=== PATIENT | female | born 1950 | race Caucasian/White ===

== ENCOUNTER 2018-07-19 08:45 | Observation (INO) | payer OTHER ==
--- NOTE | 2018-07-19 08:47 | EDPHY ---
H & P Time Seen by Provider: 07/19/18 08:47 HPI/ROS: CHIEF COMPLAINT: Chest pressure, neck discomfort HISTORY OF PRESENT ILLNESS: The patient presents to the ED with complaints of chest pressure neck discomfort that began earlier today. The patient has no history of coronary artery disease. The patient went to her primary care provider's office and was transferred to the ER for evaluation of her symptoms. The patient does report the pain is pleuritic and positional. She has no history of exertional chest pain or shortness of breath. Past medical history is significant for hyperlipidemia. The patient is a remote smoker. The patient denies any asymmetric calf pain or swelling. The patient was brought in by paramedics and received fentanyl prior to arrival. The patient arrives with a blood pressure of 200/112. REVIEW OF SYSTEMS: A comprehensive 10 point review of systems is otherwise negative aside from elements mentioned in the history of present illness. Source: Patient Exam Limitations: No limitations - Family History Significant Family History: No pertinent family hx - Social History Smoking Status: Former smoker - Physical Exam Exam: General Appearance: Alert, no distress Eyes: Pupils equal and round no pallor or injection ENT, Mouth: Mucous membranes moist Respiratory: There are no retractions, lungs are clear to auscultation Cardiovascular: Regular rate and rhythm Gastrointestinal: Abdomen is soft and nontender, no masses, bowel sounds normal Neurological: 5/5 strength all 4 extremities Skin: Warm and dry, no rashes Musculoskeletal: Neck is supple nontender Extremities: symmetrical, full range of motion, no clinical evidence of DVT Constitutional: Initial Vital Signs Temperature (C) 37.7 C 07/19/18 09:00 Heart Rate 83 07/19/18 09:00 Respiratory Rate 16 07/19/18 09:00 Blood Pressure 200/112 H 07/19/18 09:00 O2 Sat (%) 93 07/19/18 09:00 O2 Delivery Mode Room Air Allergies/Adverse Reactions: celecoxib Allergy (Verified 07/19/18 09:02) codeine Allergy (Verified 07/19/18 09:01) Penicillins Allergy (Verified 07/19/18 09:02) Sulfa (Sulfonamide Antibiotics) Allergy (Verified 07/19/18 09:02) Home Medications: Medication Instructions Recorded SIMVASTATIN 07/19/18 Medical Decision Making - Diagnostics Imaging Results: Imaging Impressions Chest X-Ray 07/19/18 08:55 Impression: Bibasilar atelectasis and moderate airways disease/bronchitis. CT chest angiogram: No dissection, no pulmonary embolism, 2 small pulmonary nodules noted. Radiologist recommend short-term follow-up in 2-3 months. ED Course/Re-evaluation: Patient presents to the ED with complaints of chest and neck pain that began last night. The patient arrives and is noted to have a normal EKG without ischemia. The patient's initial troponin was normal. The patient was quite hypertensive with a blood pressure of 200/120. She received sublingual nitroglycerin without improvement of her symptoms but did have improvement of her blood pressure down to 140/80. The patient does have a pleuritic component to chest pain. Her D-dimer is negative which I feel adequately excludes pulmonary embolism. A CT angiogram of the chest has been ordered to evaluate for dissection in the setting of chest pain, neck pain and significant hypertension. The patient does have a heart score of 5 based upon at age, risk factors and [address] chest angiogram demonstrates no evidence of a PE or dissection. The patient does have 2 pulmonary nodules which the radiologist recommends a short-term follow-up CT in 2-3 months. Patient will be admitted to the hospital by Dr. Broderick Gilliland for further evaluation and management of her symptoms. Differential Diagnosis: Differential diagnosis considered includes acute coronary syndrome, aortic dissection, pulmonary embolism, anxiety syndrome, pneumothorax, pneumonia - Data Points Laboratory Results: Laboratory Results 07/19/18 08:45 07/19/18 08:45 07/19/18 07/19/18 07/19/18 08:58 08:45 08:45 WBC RBC Hgb Hct MCV MCH MCHC RDW Plt Count MPV Neut % (Auto) Lymph % (Auto) Wilcox % (Auto) Eos % (Auto) Baso % (Auto) Nucleat RBC Rel Count Absolute Neuts (auto) Absolute Lymphs (auto) Absolute Monos (auto) Absolute Eos (auto) Absolute Basos (auto) Absolute Nucleated RBC Immature Gran % Immature Gran # D-Dimer < 0.27 ug/mLFEU ug/mLFEU (0.00-0.50) Sodium 138 mEq/L mEq/L (135-145) Potassium 4.8 mEq/L mEq/L (3.5-5.2) Chloride 108 mEq/L mEq/L (97-110) Carbon Dioxide 19 mEq/l L mEq/l (22-31) Anion Gap 11 mEq/L mEq/L (6-14) BUN 17 mg/dL mg/dL (7-23) Creatinine 0.6 mg/dL mg/dL (0.6-1.0) Estimated GFR > 60 Glucose 98 mg/dL mg/dL (70-100) Calcium 9.5 mg/dL mg/dL (8.5-10.4) POC Troponin I 0.00 ng/mL ng/mL (0.00-0.08) 07/19/18 08:45 WBC 10.74 10^3/uL H 10^3/uL (3.80-9.50) RBC 4.80 10^6/uL 10^6/uL (4.18-5.33) Hgb 15.5 g/dL g/dL (12.6-16.3) Hct 45.4 % % (38.0-47.0) MCV 94.6 fL fL (81.5-99.8) MCH 32.3 pg pg (27.9-34.1) MCHC 34.1 g/dL g/dL (32.4-36.7) RDW 12.8 % % (11.5-15.2) Plt Count 226 10^3/uL 10^3/uL (150-400) MPV 10.3 fL fL (8.7-11.7) Neut % (Auto) 73.5 % % (39.3-74.2) Lymph % (Auto) 15.7 % % (15.0-45.0) Wilcox % (Auto) 8.2 % % (4.5-13.0) Eos % (Auto) 1.9 % % (0.6-7.6) Baso % (Auto) 0.3 % % (0.3-1.7) Nucleat RBC Rel Count 0.0 % % (0.0-0.2) Absolute Neuts (auto) 7.90 10^3/uL H 10^3/uL (1.70-6.50) Absolute Lymphs (auto) 1.69 10^3/uL 10^3/uL (1.00-3.00) Absolute Monos (auto) 0.88 10^3/uL H 10^3/uL (0.30-0.80) Absolute Eos (auto) 0.20 10^3/uL 10^3/uL (0.03-0.40) Absolute Basos (auto) 0.03 10^3/uL 10^3/uL (0.02-0.10) Absolute Nucleated RBC 0.00 10^3/uL 10^3/uL (0-0.01) Immature Gran % 0.4 % % (0.0-1.1) Immature Gran # 0.04 10^3/uL 10^3/uL (0.00-0.10) D-Dimer Sodium Potassium Chloride Carbon Dioxide Anion Gap BUN Creatinine Estimated GFR Glucose Calcium POC Troponin I Medications Given: Discontinued Medications Aspirin (Aspirin) 324 mg PO EDNOW ONE Stop: 07/19/18 08:55 Last Admin: 07/19/18 09:25 Dose: 324 mg Lorazepam (Ativan Injection) 1 mg IVP EDNOW ONE Stop: 07/19/18 09:48 Last Admin: 07/19/18 09:52 Dose: 1 mg Nitroglycerin (Nitrostat) 0.4 mg SL Q5M PRN PRN Reason: Chest Pain Last Admin: 07/19/18 09:44 Dose: 0.4 mg Point of Care Test Results: Chemistry 07/19/18 08:58 POC Troponin I 0.00 ng/mL ng/mL (0.00-0.08) Departure - Dep[facility]ure [facility] Clinical Impression: Chest pain, Pulmonary nodules Condition: Good Referrals: Brooklyn Warren MD [Primary Care Provider] - As per Instructions
[2018-07-19] MEDS ORDERED: ASPIRIN 81 MG CHEWABLE TAB PO ONE (08:54)
[2018-07-19 09:04] LABS: PLATELET COUNT 226 10^3/uL (150-400)
[2018-07-19] MEDS: NITROGLYCERIN 0.4 MG BTL SL PRN ×3 (09:24→09:44)
[2018-07-19] MEDS ORDERED: LORazepam 2 MG/ML INJ IVP ONE (09:47)
[2018-07-19] MEDS ORDERED: IOPAMIDOL (ISOVUE 370) 100 ML BTL IV ONE (09:55)
[2018-07-19] MEDS ORDERED: ONDANSETRON 4 MG/2 ML VIAL IVP PRN (12:54)
[2018-07-19] MEDS ORDERED: ONDANSETRON DISINTEGRATING 4 MG TAB PO PRN (12:54)
[2018-07-19] MEDS ORDERED: ACETAMINOPHEN 325 MG TAB PO PRN (12:54)
[2018-07-19] MEDS ORDERED: IBUPROFEN 200 MG TAB PO PRN (13:02)
[2018-07-19] MEDS ORDERED: MBX SOLN 30 ML BOTTLE PO PRN (13:07)
--- NOTE | 2018-07-19 13:36 | GHP ---
[f rep st] HISTORY AND PHYSICAL DATE OF ADMISSION: 07/19/2018 HISTORY OF PRESENT ILLNESS: The patient is a pleasant 68-year-old female with history of hyperlipide danie who awoke last evening with pain in her throat that radiated down to her chest. It felt like a s ore throat, but her throat itself was not sore. She was not diaphoretic or shortness of breath. It did not radiate to her arms. It was somewhat bilateral in nature. She has a history of hyperlipidemia and was very hypertensive on presentation. In the past, she has had episodes of periodic hypertension. She does not had a history of exertional anginal symptoms. S he has had reflux in the past. This did not particularly feel like it. There is also a pleuritic na ture to it. She has not had other viral prodrome-like symptoms. She worked a double shift as a cook. She came home. She did have a couple glasses of wine prior to bed while watching [employer]. She denies history of PND, orthopnea, or lower extremity edema. She does not have a history of angin al-type symptoms. REVIEW OF SYSTEMS: Complete 10-point review of systems conducted. Negative except as noted in the H PI. PAST MEDICAL HISTORY: Hyperlipidemia. HOME MEDICATIONS: Simvastatin, ibuprofen. ALLERGIES: Celecoxib, codeine, penicillin, sulfa. SOCIAL HISTORY: She is a cook. Lives in [place]. Originally from [place]. Nonsmoker, but did smoke for 40 years. FAMILY HISTORY: Notable for a congestive heart failure in her father. PHYSICAL EXAM: PRESENTING VITALS: Temp 37.7, blood pressure 200/112, now 123/75, pulse 83, breathin g 16 times a minute, 92% on room air. GENERAL: No acute distress. HEENT: Sclerae anicteric. Orop harynx clear. Mucous membranes moist. NECK: Supple without lymphadenopathy or JVD. LUNGS: Clear to auscultation bilaterally. HEART: S1, S2. ABDOMEN: Soft, nontender, nondistended. LOWER EXTREM ITIES: No edema. Calves are nontender. SKIN: Without rash NEUROLOGIC: Nonfocal. LABORATORY DATA: White count 10, hematocrit 45, platelets are 226,000, D-dimer is normal. Sodium 13 8, potassium 4.8, chloride 108, bicarb 19, BUN 17, creatinine 0.6, glucose is 98, point of care tropo varsha was 0.00. EKG interpreted by me shows sinus rhythm at 80 with normal axis and intervals. There are no ST or T- wave changes. Chest CT shows no thromboembolic disease. No aortic dissection. She does have 2 semisolid 1 cm nodu les in the left upper lobe and right lower lobe. Chest x-ray interpreted by me, bibasilar atelectasis with airway disease. I discussed the case with Dr. Richard Thornton. ASSESSMENT AND PLAN: A 68-year-old female with chest and neck pain. 1. Chest/neck pain. It is difficult to know what to make of this. I think probably it probably act ually sounds most like reflux-type symptoms and certainly having one right before bed does put people at risk for this. That said, I think given her risk factor profile, she warrants further evaluation with a stress test. We will also cycle troponins, check a lipid panel in the morning. I will give her a trial of a GI cocktail now. 2. Hypertension. She was markedly hypertensive on presentation. It has kind of normalized. We sabrina l follow. We will not start her on any antihypertensives at this point in time. 3. Question viral syndrome. The patient has some airway disease and crackles on exam. We will foll ow. 4. Prophylaxis. SCDs, low-molecular heparin if staying longer than 24 hours. DISPOSITION: Observation status. /[id number]/MODL
[2018-07-19] MEDS ORDERED: PRAVASTATIN SODIUM 20 MG TAB PO SCH (21:00)
[2018-07-20] MEDS ORDERED: REGADENOSON 0.4 MG/5 ML SYR IVP ONE (11:05)
--- NOTE | 2018-07-20 12:33 | CPR ---
[f rep st] NONINVASIVE CARDIAC PROCEDURE REPORT DATE OF PROCEDURE: 07/20/2018 PROCEDURE: Sola nuclear stress test. INDICATION: The patient is a 68-year-old female who presented to the hospital with pleuritic chest p ain. Her chest discomfort began after she woke up in the morning. It was worse with deep breaths an d lying down. Her symptoms progressed and, therefore, she presented to the hospital. Her risk facto rs for coronary artery disease include hyperlipidemia. Her EKG is also abnormal with poor R-wave pro gression in the anterior leads, indicating a possible interior prior anterior WA. DESCRIPTION OF PROCEDURE: Consent was obtained. The patient was placed on continuous telemetry. He r resting EKG revealed normal sinus rhythm with poor R-wave progression in lead V3 and nonpathologica l Q-waves in the inferior leads. The patient attempted to walk on the treadmill, but developed chest pain at approximately 2 minutes. Her discomfort progressed and at 6 minutes the treadmill portion w as discontinued and she was switched over to Lexiscan. She was infused with Lexiscan and complained of lightheadedness and shortness of breath. She remained in normal sinus rhythm throughout the infus ion. Her blood pressure was stable with the infusion, but she did become slightly tachycardic. With in 4 minutes of the recovery, her symptoms had resolved. Her chest discomfort also improved by this time. PLAN: Her symptoms are most consistent with pericarditis, but she she does have an abnormal EKG. Dwayne lei nuclear images. /[id number]/MODL
[2018-07-20 12:56] VITALS: BP 125/67
--- NOTE | 2018-07-20 13:15 | CPEKG ---
Test Reason : OPEN Blood Pressure : / mmHG Vent. Rate : 080 BPM Atrial Rate : 080 BPM P-R Int : 151 ms QRS Dur : 082 ms QT Int : 402 ms P-R-T Axes : 051 007 048 degrees QTc Int : 464 ms Sinus rhythm Confirmed by Rosendo Cardoza ([id number]) on 07/20/2018 1:15:15 PM Referred By: Broderick Gilliland Confirmed By:Rosendo Cardoza
--- NOTE | 2018-07-20 13:39 | HOSPPROG ---
Hospitalist Progress Note Assessment/Plan: 68 yo F w atypical cp, neg stress home today see dc summary Subjective: stess neg Objective: Vital Signs Temp Pulse Resp BP Pulse Ox 37.1 C 73 18 125/67 H 92 07/20/18 12:00 07/20/18 12:00 07/20/18 12:00 07/20/18 12:00 07/20/18 12:00 07/19/18 07/20/18 07/21/18 05:59 05:59 05:59 Intake Total 950 400 Balance 950 400 - Physical Exam Constitutional: no apparent distress, appears nourished Eyes: PERRL, anicteric sclera Ears, Nose, Mouth, Throat: moist mucous membranes, hearing normal Cardiovascular: regular rate and rhythym, no murmur, rub, or gallop Respiratory: no respiratory distress, no rales or rhonchi Gastrointestinal: normoactive bowel sounds, soft, non-tender abdomen Genitourinary: No adler in urethra Skin: warm, normal color Musculoskeletal: full muscle strength ICD10 Worksheet Patient Problems: Problems Problem Status Onset Chest pain Acute Pulmonary nodules Acute
--- NOTE | 2018-07-20 14:04 | GDS ---
[f rep st] DISCHARGE SUMMARY DISCHARGE DIAGNOSES: Atypical chest pain, hyperlipidemia. Please see admission history and physical by Dr. Broderick Gilliland. HOSPITAL COURSE: The patient was having atypical chest pains around her upper chest, associated with some pleuritic component. She had a chest x-ray that was negative for pneumonia. She had a CTA, sh owing normal caliber aorta without aneurysm, dissection, no thromboembolic disease. She had 2 semi-s olid 1 cm nodules in the left upper lobe and right lower lobe; they require followup. She is given a prescription for followup CT scan in 3 months. She has been a smoker. She had an EKG that was pedro luis schemic without ST or T-wave changes, did not have HI changes either. Maybe some subtle HI depressio n at lead 2. The patient had some pain with exercising, but had no wall motion abnormalities. No ev idence of prior infarct or ischemia. Normal left ventricular ejection fraction. There is a possible diagnosis of pericarditis. She is advised to take NSAIDs for 5 days. She is given a prescription f or followup CT scan with contrast of the lung in 3 months, which will be October. /[id number]/MODL
--- NOTE | 2018-07-20 14:53 | ASDISCHSUM ---
Discharge Information Plan Status:Home with No Needs Medically Cleared to Leave:07/20/2018 Discharge Date:07/20/2018 02:51 PM CM D/C Disposition:Home, Routine, Self-Care ADT D/C Disposition: Projected Discharge Date:07/20/2018 02:51 PM Transportation at D/C: Discharge Delay Reason: Follow-Up Date:07/20/2018 02:51 PM Discharge Slot: Final Diagnosis: Placement Information Patient Contact Information Contact Name:BECK Relationship:Cousin Address: City: [facility] Phone: [facility] Code: Email: Financial Information Financial Class:Medicare Advantage Plans Primary Plan Desc:[facility] ADVANTAGE PLANS Primary Plan Number:[id number] Secondary Plan Desc: Secondary Plan Number: Assessment Information LACE LACE Length of stay for Answers: 1 day current admission Acuity / Level of Answers: No Care: Did the patient have an inpatient admission? Comorbidities - select Answers: Other Notes: HLD all that apply # of Emergency department Answers: 1-2 visits in the last 6 months Score: 3 Date Signed: 07/20/2018 02:51 PM Electronically Signed By:Brenda Hogan RN Intervention Information
== END 2018-07-20 14:51 | disposition home or self-care (01) ==
LOC: EDUNIT# → F2W 11:45
PROVIDERS: ADMIT Internal Medicine; ATTEND Internal Medicine
DX: R07.89 Other chest pain (principal); E78.5 Hyperlipidemia, unspecified; R91.8 Other nonspecific abnormal finding of lung field; E86.9 Volume depletion, unspecified; Z87.891 Personal history of nicotine dependence
CPT/HCPCS: 71045; 71275; 78452; 93005; 93017; 96374; 99285; A9500; G0378; J2060; J2785; Q9967; 84484-ER

== ENCOUNTER → 2018-08-16 | Outpatient (CLI) | payer OTHER | LOC: BMCIMAGING 09:46 ==